=== PATIENT | female | born 1970 | race Caucasian/White ===

== ENCOUNTER 2016-08-03 22:12 | Emergency (ER) | payer OTHER ==
[~2016-08-03] VITALS: Ht 154.9 cm; Wt 109.7 kg
[~2016-08-03 22:12] MED LIST: AMBIEN10 M1 PO; AMBIEN10 MG PO; AMOXICILLIN875 MG PO; Antivert PO; BUSPAR5 M1 PO; Bactrim,Septra DS 80 PO; CYANOCOBAL1000 MCG/2 IJ; Desyrel PO; KRILL OIL500 MG PO; MOTRIN800 MG PO; OSTERA TABLET1 EACH PO; TAMIFLU75 MG PO; TOPAMAX25 MG PO; TRAZODONE HCL100 MG PO; TRAZODONE HCL150 MG PO; TRAZODONE HCL50 MG PO; TYLENOL WITH C1 EACH PO; ZOCOR20 MG PO; ZOLOFT100 M1 PO; ZOLOFT50 MG PO
[2016-08-03 22:36] LABS: MCH 28.8 PG (29.0-34.0); MCHC 32.3 G/DL (30.0-36.0); MCV 89.2 FL (83-99); MEAN PLAT.VOLUME 10.4 uM^3 (9.5-12.4); PLATELET COUNT 253 K/uL (156-360); RBC DIS.WIDTH-CV 13.4 % (11.8-14.6); RBC DIS.WIDTH-SD 43.7 % (39-53); RED BLOOD COUNT 5.27 M/uL (3.80-5.20); WHITE BLOOD COUNT 13.2 K/uL (4.1-10.2)
[2016-08-03 22:46] LABS: CHLORIDE 104 mEq/L (99-109); POTASSIUM 4.4 mEq/L (3.7-5.4); SODIUM 140 mEq/L (136-147)
[2016-08-03 22:48] LABS: GLUCOSE 95 mg/dL (70-99)
[2016-08-03 22:49] LABS: ANION GAP 10 MEQ/L (2-14)
[2016-08-03 22:52] LABS: GFR ESTIMATE (CALCULATED) > 59 mL/min/
[2016-08-03 22:53] LABS: UREA NITROGEN (BUN) 23 mg/dL (9-23)
[2016-08-03 22:57] LABS: TROP-I INTERPRETATION NEGATIVE; TROPONIN-I < 0.01 ng/mL (0.0-0.30)
[2016-08-04 01:05] VITALS: BP 129/90
== END 2016-08-04 01:06 | disposition home or self-care (01) ==
LOC: EME 22:12
DX: G45.9 Transient cerebral ischemic attack, unspecified (principal); F17.200 Nicotine dependence, unspecified, uncomplicated
CPT/HCPCS: 70450; 71020; 80048; 84484; 85027; 93005; 99281; 99285